=== PATIENT | male | born 1955 | race Caucasian/White ===

== ENCOUNTER 2016-09-18 17:40 | Emergency (ER) | payer BC ==
[2016-09-18 17:49] VITALS: TEMP 98.2; O2SAT 95
--- NOTE | 2016-09-18 18:04 | EDPHY ---
H & P Stated Complaint: bucked off horse at 1230 + loc/denies neck pain/body contusions LB pain Time Seen by Provider: 09/18/16 17:57 - Personal History Current Tetanus/Diphtheria Vaccine: No - Medical/Surgical History Hx Asthma: No Hx Chronic Respiratory Disease: No Hx Diabetes: No Hx Cardiac Disease: No Hx Renal Disease: No Hx Cirrhosis: No Hx Alcoholism: No Hx HIV/AIDS: No Hx Splenectomy or Spleen Trauma: No Other PMH: depression - Social History Smoking Status: Never smoked Constitutional: Initial Vital Signs Temperature (C) 36.8 C 09/18/16 17:43 Heart Rate 56 L 09/18/16 17:43 Respiratory Rate 16 09/18/16 17:43 Blood Pressure 145/75 H 09/18/16 17:43 O2 Sat (%) 95 09/18/16 17:43 O2 Delivery Mode Room Air Allergies/Adverse Reactions: No Known Allergies Allergy (Unverified 09/18/16 17:42) Home Medications: Medication Instructions Recorded Ritalin 10mg (*) 09/18/16 Wellbutrin 100mg (*) 09/18/16 Medical Decision Making - Diagnostics Imaging Results: Imaging Impressions Lumbar Spine CT 09/18/16 18:03 Impression: No fracture identified. Degenerative disk disease predominantly at L4-L5. Results called to Dr. Camargo at 7:00 PM. General information for patients regarding this examination can be found at [employer]. If you have questions or comments about this report, please contact me at [phone] ([facility]) or [phone] (cell). Head CT 09/18/16 18:05 Impression: 1. Negative. 2. Single punctate left temporal foreign body. A message was left for Dr. Camargo at 6:53 PM General information for patients regarding this examination can be found at [employer]. If you have questions or comments about this report, please contact me at ([facility]) or [phone] (cell). Imaging: Discussed imaging studies w/ call centre supervisor Radiologist ED Course/Re-evaluation: CHIEF COMPLAINT: Lumbar back pain HISTORY OF PRESENT ILLNESS: The patient is a 61 y/o male arriving with his complaining of lumbar back pain after falling off a horse around 12:30 today, about 5.5 hours ago. He says the horse began bucking and "I remember being in the air, then remember a [place] walking up to me." His states he was unconscious for 3 minutes and was quite confused for several minutes after that. He does not remember striking his head. His head feels "like when I keep my contacts in too long and I get a headache." His back pain is aggravated significantly by palpation. He denies weakness, paresthesias, or other injuries. He denies anticoagulant use. REVIEW OF SYSTEMS: A 10 point review of systems was performed and is negative with the exception of the elements mentioned in the history of present illness. PHYSICAL EXAM: HR, BP, O2 Sat, RR. Temp noted General Appearance: Alert, well hydrated, appropriate, and non-toxic appearing. Head: Atraumatic without scalp tenderness or obvious injury Eyes: Pupils equal, round, reactive to light and accommodation, EOMI, no trauma , no injection. Nose: Atraumatic, no rhinorrhea, clear. Throat: There is no erythema or exudates, no lesions, normal tonsils, mucus membranes moist. Neck: Supple, non-tender, no lymphadenopathy. Respiratory: No retractions, no distress, no wheezes, and no accessory muscle use. Lungs are clear to auscultation bilaterally. Cardiovascular: Regular rate and rhythm, no murmurs, rubs, or gallops. Good capillary refill all extremities. Gastrointestinal: Abdomen is soft, non-tender, non-distended, no masses, no rebound, no guarding, no peritoneal signs. Musculoskeletal: Normal active ROM of all extremities, scattered abrasions. Exquisite tenderness over midline lumbar spine. Neurological: Alert, appropriate, and interactive. Nonfocal neuro exam. Skin: No rashes, good turgor, no nodules on palpation. Abrasion to right hughes, thoracic back. PAST MEDICAL HISTORY: Denies PAST SURGICAL HISTORY: Denies SOCIAL HISTORY: , at bedside. DIAGNOSTICS/PROCEDURES/CRITICAL CARE TIME: CT head: Negative CT lumbar spine: nothing acute DIFFERENTIAL DIAGNOSIS: The differential diagnosis for the patient's trauma included but was not limited to intracranial injury, long bone and pelvic bone fractures, spinal injury, intra-abdominal injury, and intra-thoracic injury. MEDICAL DECISION MAKING: This is a well-appearing 61 y/o male presenting with exquisite tenderness over his midline lumbar spine with witnessed loss of consciousness secondary to falling off a horse. He is neurovascularly intact. Plan for CT imaging of his head and lumbar spine and symptomatic management as needed. He refuses pain medication at this time. CTs show nothing acute. I discussed these findings with the patient. He will be given standard contusion instructions and a script for OxyIR to take as needed for pain. Return precautions and follow up instructions given. Departure - Departure Disposition: Home, Routine, Self-Care Clinical Impression: Multiple contusions, Abrasions of multiple sites Concussion Qualifiers: Encounter type: initial encounter Loss of consciousness presence/duration: with LOC of 30 min or less Qualified Code(s): S06.0X1A - Concussion with loss of consciousness of 30 minutes or less, initial encounter Head injury Qualifiers: Encounter type: initial encounter Qualified Code(s): S09.90XA - Unspecified injury of head, initial encounter Condition: Good Instructions: Contusion in Adults (ED), Abrasion (ED), Concussion (ED), Head Injury (ED) Additional Instructions: 1. Take 800mg ibuprofen every 6-8 hours as needed for pain and inflammation over the next few days. Apply ice to sore areas for pain. 2. Take OxyIR as prescribed if needed for severe pain. 3. Follow up with your primary care provider if needed for continued symptoms over the next week. 4. Follow up with Dr. Kinsey, head injury specialist, if concussion symptoms do not improve over the next 1-2 weeks. 5. Return to the ED for severe pain, weakness, numbness, shortness of breath, or other worsening of condition. Referrals: DONYA MUNGUIA [Other] - As per Instructions Pamela Kinsey MD [Medical Doctor] - As per Instructions Report Scribed for: Vickey Camargo Report Scribed by: Nery Bae Date of Report: 09/18/16 Time of Report: 18:04
[2016-09-18 19:31] VITALS: BP 163/82; PULSE 56; RESP 16
== END 2016-09-18 19:31 | disposition home or self-care (01) ==
DX: S06.0X1A Concussion with loss of consciousness of 30 minutes or less, initial encounter (principal); S80.811A Abrasion, right lower leg, initial encounter; T14.8 Other injury of unspecified body region; V80.010A Animal-rider injured by fall from or being thrown from horse in noncollision accident, initial encounter